=== PATIENT | female | born 1990 | race Caucasian/White ===

== ENCOUNTER 2022-05-17 15:04 | Inpatient (IN) | payer OTHER ==
[2022-05-17] MEDS ORDERED: Ondansetron 4 MG/2 ML SDV IVPUSH PRN (17:01)
[2022-05-17] MEDS ORDERED: Sodium Chloride 0.9% 10 ML Syringe FLUSH PRN (17:01)
[2022-05-17] MEDS ORDERED: Oxytocin/Lactated Ringers 10 UNIT/1,000 ML BAG IV SCH (17:01)
[2022-05-17] MEDS ORDERED: Nalbuphine 10 MG/0.5 ML Syringe IVPUSH PRN (17:01)
[2022-05-17] MEDS ORDERED: Ampicillin 2 GM in Sodium Chloride 0.9% 100 ML IV ONE (17:30)
[2022-05-17] MEDS: Lactated Ringers 1,000 ML IV SCH (17:54)
[2022-05-17] MEDS: Oxytocin/Lactated Ringers 10 UNIT/1,000 ML BAG IV SCH (17:55)
[2022-05-17] MEDS: Ampicillin 1 GM in Sodium Chloride 0.9% 100 ML IV SCH (21:47)
[2022-05-18] MEDS ORDERED: diphenhydrAMINE 50 MG/ML SDV IVPUSH PRN (00:44)
[2022-05-18] MEDS ORDERED: ePHEDrine 50 MG/ML SDV IVPUSH PRN (00:44)
[2022-05-18] MEDS ORDERED: fentaNYL 100 MCG/2 ML SDV EPIDUR PRN (00:44)
[2022-05-18] MEDS: Lactated Ringers 1,000 ML IV SCH ×2 (00:54→05:10)
[2022-05-18] MEDS: Bupivacaine/fentaNYL/NS 100 ML Bag EPIDUR PRN ×2 (01:10→08:19)
[2022-05-18] MEDS: Ampicillin 1 GM in Sodium Chloride 0.9% 100 ML IV SCH ×3 (02:10→09:32)
[2022-05-18] MEDS: Oxytocin/Lactated Ringers 10 UNIT/1,000 ML BAG IV SCH ×2 (05:40→12:17)
[2022-05-18] MEDS ORDERED: Citric Acid/Sodium Citrate Solution 30 ML Cup PO ONE (07:30)
[2022-05-18] MEDS ORDERED: ceFAZolin 2 GM in Sodium Chloride 0.9% 50 ML IV ONE (07:30)
[2022-05-18] MEDS ORDERED: Metoclopramide 10 MG/2 ML SDV IVPUSH ONE (07:30)
[2022-05-18] MEDS ORDERED: Azithromycin 500 MG in Sodium Chloride 0.9% 250 ML IV ONE (08:00)
[2022-05-18] MEDS: Sodium Chloride 0.9% 10 ML Syringe FLUSH SCH (09:03)
[2022-05-18] MEDS ORDERED: Witch Hazel Medicated Pads 40/Jar TOP PRN (14:15)
[2022-05-18] MEDS ORDERED: Benzocaine/Menthol 20%-0.5% Spray 78 GM Cannister TOP PRN (14:15)
[2022-05-18] MEDS ORDERED: Acetaminophen 325 MG Tab PO PRN (14:15)
[2022-05-18] MEDS: FLUoxetine 20 MG Cap PO SCH (15:03)
[2022-05-18] MEDS: Docusate Sodium 100 MG Cap PO PRN (20:20)
[2022-05-18] MEDS: Ibuprofen 600 MG Tab PO PRN (20:20)
[2022-05-19] MEDS: Ibuprofen 600 MG Tab PO PRN ×3 (04:09→20:51)
[2022-05-19] MEDS: Ampicillin 1 GM in Sodium Chloride 0.9% 100 ML IV SCH (07:55)
[2022-05-19] MEDS: Sodium Chloride 0.9% 10 ML Syringe FLUSH SCH (08:01)
[2022-05-19] MEDS: FLUoxetine 20 MG Cap PO SCH (10:17)
[2022-05-19] MEDS: Docusate Sodium 100 MG Cap PO PRN (20:53)
[2022-05-20] MEDS: Ibuprofen 600 MG Tab PO PRN ×2 (04:44→12:14)
[2022-05-20] MEDS: Docusate Sodium 100 MG Cap PO PRN (09:06)
[2022-05-20] MEDS: FLUoxetine 20 MG Cap PO SCH (09:06)
== END 2022-05-20 12:15 | disposition home or self-care (01) | DRG 805 ==
LOC: JD.OBCHECK 15:04 → JD.OB 15:30 → OBSVTOIN 15:30 → JD.OB 15:56
PROVIDERS: ADMIT Obstetrics & Gynecology; ATTEND Obstetrics & Gynecology
PROC: 10E0XZZ Delivery of Products of Conception, External Approach (ICD-10-PCS; principal; 2022-05-17)
PROC: 0KQM0ZZ Repair Perineum Muscle, Open Approach (ICD-10-PCS; 2022-05-17)
PROC: 3E0R3BZ Introduction of Anesthetic Agent into Spinal Canal, Percutaneous Approach (ICD-10-PCS; 2022-05-17)
PROC: 00HU33Z Insertion of Infusion Device into Spinal Canal, Percutaneous Approach (ICD-10-PCS; 2022-05-17)
PROC: 10H07YZ Insertion of Other Device into Products of Conception, Via Natural or Artificial Opening (ICD-10-PCS; 2022-05-17)
DX: O42.013 Preterm premature rupture of membranes, onset of labor within 24 hours of rupture, third trimester (principal); O60.14X0 Preterm labor third trimester with preterm delivery third trimester, not applicable or unspecified; Z37.0 Single live birth; O99.344 Other mental disorders complicating childbirth; F32.A Depression, unspecified; O70.1 Second degree perineal laceration during delivery; O69.81X0 Labor and delivery complicated by cord around neck, without compression, not applicable or unspecified; F41.8 Other specified anxiety disorders; Z3A.36 36 weeks gestation of pregnancy; Z87.891 Personal history of nicotine dependence
CPT/HCPCS: 01967; 36415; 51701; 51702; 59025; 59409; 85027; 86592; 86850; 86900; 86901; 87653; A9270-GY; J0290; J2300; J2590; J3010; J3490; J7120